=== PATIENT | male | born 1930 | race Caucasian/White ===

== ENCOUNTER 2016-08-18 14:01 | Inpatient (IN) | payer MEDICARE, OTHER ==
[~2016-08-18] VITALS: Ht 175.3 cm; Wt 80.5 kg
[2016-08-18 14:59] LABS: BASOPHILS 1.3 % (0.0-2.0); EOSINOPHILS 2.4 % (0-7); HEMATOCRIT 42.6 % (42.0-54.0); HEMOGLOBIN 13.7 g/dL (13.5-17.5); IMMATURE GRANULOCYTES 0.3 % (0-5); LYMPHOCYTES 29.3 % (15-50); MCH 28.3 pg (26.0-34.0); MCHC 32.2 g/dL (31.0-37.0); MEAN PLATELET VOLUME 10.5 fL (7.4-10.4); NEUTROPHILS 52.7 % (40-80); PLATELET COUNT 208 10x3/uL (130-400); RBC 4.84 10x6/uL (4.20-6.10); RDW 14.9 % (11.5-14.5); WBC 7.9 10x3/uL (4.8-10.8)
[2016-08-18 15:18] LABS: APPEARANCE CLEAR (CLEAR); BILIRUBIN NEGATIVE (NEGATIVE); COLOR YELLOW (YELLOW); GLUCOSE NEGATIVE (NEGATIVE); KETONE NEGATIVE (NEGATIVE); LEUKOCYTE ESTERASE NEGATIVE (NEGATIVE); NITRITE NEGATIVE (NEGATIVE); PROTEIN NEGATIVE (NEGATIVE); SPECIFIC GRAVITY 1.015 (1.005-1.020); UROBILINOGEN NORMAL (NORMAL)
[2016-08-18 15:22] LABS: INR 1.04 (0.85-1.17); PROTIME 13.4 SECONDS (11.6-15.0)
[2016-08-18 15:24] LABS: D-DIMER-QUANTITATIVE 1.5 ug/mLFEU (0.20-0.54)
[2016-08-18 15:28] LABS: ALBUMIN 3.3 g/dL (3.4-5.0); ALKALINE PHOSPHATASE 80 U/L (46-116); ALT (SGPT) 22 U/L (10-68); BILIRUBIN - TOTAL 0.66 mg/dL (0.2-1.3); CALC OSMOLALITY 287 mosm/kg (275-300); CALCIUM 8.3 mg/dL (8.5-10.1); CARBON DIOXIDE 29.9 mmol/L (21.0-32.0); CHLORIDE - SERUM 104 mmol/L (98-107); CREATINE KINASE 59 UL (21-232); CREATININE - SERUM 1.3 mg/dL (0.6-1.3); GLUCOSE 112 mg/dL (74-106); POTASSIUM - SERUM 4.2 mmol/L (3.5-5.1); PRO BNP 1179 pg/mL (0-450); PROTEIN - SERUM 6.3 g/dL (6.4-8.2); SODIUM 142 mmol/L (136-145); UREA NITROGEN 23 mg/dL (7-18); eGFR NON AFRICAN AMERICAN 55 mL/min (90-120)
[2016-08-18 15:33] LABS: TROPONIN-I < 0.017 ng/mL (0.000-0.060)
[2016-08-18] MEDS ORDERED: METOPROLOL TART50 MG PO (19:36)
[2016-08-18] MEDS ORDERED: LIPITOR40 MG PO (19:37)
[2016-08-18] MEDS ORDERED: BAYER CHEWABLE81 MG PO (19:38)
[2016-08-18] MEDS ORDERED: PACERONE100 MG PO (19:39)
[2016-08-18] MEDS ORDERED: OMEPRAZOLE20 M1 PO (19:41)
[2016-08-18] MEDS ORDERED: FLAXSEED OIL1000 MG PO (19:44)
[2016-08-18] MEDS ORDERED: MULTIPLE VITAMI1 TA1 PO (19:44)
[2016-08-18] MEDS ORDERED: ADVIL200 MG PO (19:44)
[2016-08-18] MEDS ORDERED: BREO ELLIPTA 11 EACH INH (19:47)
[2016-08-18 21:00] VITALS: BP 189/66
[2016-08-18 23:45] VITALS: BP 187/66; Ht 175.3 cm; Wt 80.5 kg
[2016-08-19 00:30] VITALS: BP 133/47
[2016-08-19 05:00] VITALS: BP 136/55
--- NOTE | 2016-08-19 07:00 | NUR ---
REPORT RECIEVED ASSUMED CARE. PATIENT IN BED WITH IV INTACT. NO COMPLAINTS. CALL LIGHT WITHIN REACH.
[2016-08-19 07:51] VITALS: BP 155/54
--- NOTE | 2016-08-19 10:17 | NUR ---
Rehab Note- Rehab Prescreen Order received. The patient is a new admit, awaiting MD assessment and further tests for possible achilles tendon rupture. Will follow at this time. Thank you for this referral! Purvi Salmon RN Clinical Liaison, Rehab Care/[place]
[2016-08-19 10:56] LABS: ALBUMIN 2.9 g/dL (3.4-5.0); ANION GAP 8.3 mmol/L (8-16); BILIRUBIN - TOTAL 0.6 mg/dL (0.2-1.3); CALCIUM 8.5 mg/dL (8.5-10.1); CREATININE - SERUM 1.4 mg/dL (0.6-1.3); POTASSIUM - SERUM 4.3 mmol/L (3.5-5.1); PROTEIN - SERUM 5.8 g/dL (6.4-8.2)
[2016-08-19 10:57] LABS: BASOPHILS 0.8 % (0.0-2.0); HEMATOCRIT 41.4 % (42.0-54.0); HEMOGLOBIN 13.4 g/dL (13.5-17.5); IMMATURE GRANULOCYTES 0.3 % (0-5); MCH 28.4 pg (26.0-34.0); MCHC 32.4 g/dL (31.0-37.0); MCV 87.7 fL (80.0-100.0); MEAN PLATELET VOLUME 10.5 fL (7.4-10.4); MONOCYTES 18.4 % (2-11); NEUTROPHILS 49.5 % (40-80); PLATELET COUNT 183 10x3/uL (130-400); RBC 4.72 10x6/uL (4.20-6.10); RDW 14.7 % (11.5-14.5); WBC 6.4 10x3/uL (4.8-10.8)
--- NOTE | 2016-08-19 11:00 | NUR ---
PATIENT IN BED WITH NO COMPLAINTS. SITTING UP IN BED WITH CALL LIGHT WITHIN REACH.
--- NOTE | 2016-08-19 12:24 | NUR ---
Rehab Prescreening Consult recieved and the patient has been visited. He meets criteria and desires to participate in the required therapy. Unsure at this time the treatment plan so rehab will follow. The patient and the CM have been made aware. Antonina Francisco RN Clinical Liaison, RN
[2016-08-19 12:29] VITALS: BP 150/56
--- NOTE | 2016-08-19 13:57 | NUR ---
Patient Name: SD LEGGETT Admission Status: ER Accout number: [id number] Admission Date: 08-18-2016 : 1929 Admission Diagnosis: Attending: ALLISON Current LOS: 1 Anticipated DC Date: 08-20-2016 Planned Disposition: Home Primary Insurance: MEDICARE A & B Discharge Planning Comments: CM MET WITH PATIENT AND FAMILY REGARDING D/C NEEDS AND PLANS. PATIENT STATED HE HAS A RAMP TO ENTER HIS HOME AND 1 STEP INSIDE. PATIENT STATED HIS SON IN LAW (YUNIOR) WILL DRIVE HIM HOME AT DISCHARGE. PATIENT IS INDEPENDENT WITH HIS CARE AND HAS A WALKER, WHEELCHAIR, AND CRUTCHES AT HOME. PATIENTS PCP IS DR. BEARD AND PHARMACY IS [facility]. PATIENT HAS NEVER HAD HOME HEALTH BUT IF DOCTOR THOUGHT HE NEEDED IT HE WOULD HAVE IT PER PATIENT. CM WILL CONTINUE TO FOLLOW PATIENT WITH D/C NEEDS AND PLANS. PCP DR. [facility] [id number] RAKAN (DAUGHTER) [phone] YUNIOR (SON IN LAW) [phone] Surgical Technology Instructor: Amrailis Garcia Is the patient Alert and Oriented? Yes 0 * How many steps to enter\exit or inside your home? RAMP 0 * PCP DR. BEARD 0 * Pharmacy [place] 0 * Preadmission Environment Home Alone 0 * ADLs Independent 0 * Equipment Crutch Walker Wheelchair 0 * List name and contact numbers for known caregivers / representatives who currently or will assist patient after discharge: RAKAN KEARNEY (DAUGHTER) [phone] YUNIOR (SON IN LAW) [phone] 0 * Community resources currently utilized None 0 * Additional services required to return to the preadmission environment? Yes 0 * Can the patient safely return to the preadmission environment? Yes 0 * Has this patient been hospitalized within the prior 30 days at any hospital? No 0 Grand Total: 0
--- NOTE | 2016-08-19 15:00 | NUR ---
PATIENT IN BED WITH IV INTACT. NO COMPLAINTS. CALL LIGHT WITHIN REACH.
--- NOTE | 2016-08-19 16:01 | NUR ---
Rehab Note- MRI completed and patient has a noted "near complete tear of the Achilles tendon with retraction of a large portion of the tendon". Has an ortho consult. Will follow the patient at this time and await plan from Ortho. Thank you! Purvi Salmon RN Clinical Liaison, Rehab Care/[place]
[2016-08-19 16:37] VITALS: BP 152/51
--- NOTE | 2016-08-19 18:45 | NUR ---
PATIENT SITTING UP WATCHING TV. IV INTACT. TELEMETRY PLACED ON PATIENT. BSCDS ON PATIENT. NO COMPLAINTS. FAMILY AT BEDSIDE. CALL LIGHT WITHIN REACH.
[2016-08-19 19:00] VITALS: BP 159/45
[2016-08-20] VITALS (15 sets, daily range): BP systolic 102–181; BP diastolic 45–102
--- NOTE | 2016-08-20 03:58 | NUR ---
ASSESSED AT THE BEGINNING OF THE SHIFT. HE DAD VISITORS AT THE BEDSIDE AND WAS IN A GOOD MOOD. HE HAS TELEMETRY IN PLACE WITH NORMAL SINUS RHYTHM AND IS USING A URINAL AT [facility] BEDSIDE. DR HANKINS IS TO SEE HIM IN THE AM ABOUT HIS ACHILLES TENDON. THE BED IS LOW, RAILS UP X'S 2 WITH THE CALL LIGHT AT HAND. HE IS NOT COMPLAINING OF PAIN UNLESS HE TRYS TO USE IT TO WALK. HE IS ABLE TO VERBALIZE HIS NEEDS.
[2016-08-20 06:08] LABS: BASOPHILS 0.6 % (0.0-2.0); EOSINOPHILS 2.1 % (0-7); HEMATOCRIT 41.3 % (42.0-54.0); HEMOGLOBIN 13.3 g/dL (13.5-17.5); IMMATURE GRANULOCYTES 0.1 % (0-5); LYMPHOCYTES 26.9 % (15-50); MCH 27.9 pg (26.0-34.0); MCHC 32.2 g/dL (31.0-37.0); MCV 86.8 fL (80.0-100.0); MEAN PLATELET VOLUME 10.9 fL (7.4-10.4); MONOCYTES 17.6 % (2-11); NEUTROPHILS 52.7 % (40-80); PLATELET COUNT 171 10x3/uL (130-400); RBC 4.76 10x6/uL (4.20-6.10); RDW 14.7 % (11.5-14.5); WBC 7.9 10x3/uL (4.8-10.8)
[2016-08-20 06:38] LABS: ANION GAP 9.6 mmol/L (8-16); BILIRUBIN - TOTAL 0.82 mg/dL (0.2-1.3); CALCIUM 8.6 mg/dL (8.5-10.1); CARBON DIOXIDE 31.3 mmol/L (21.0-32.0); CREATININE - SERUM 1.2 mg/dL (0.6-1.3); POTASSIUM - SERUM 3.9 mmol/L (3.5-5.1); PROTEIN - SERUM 6.2 g/dL (6.4-8.2)
--- NOTE | 2016-08-20 07:00 | NUR ---
PT REC'D FROM [facility]. RESTING IN BED AAOX4. NO CURRENT COMPLAINTS OF PAIN. PT STATES, "UNLESS I MOVE A CERTAIN WAY IT DOESN'T HURT." L ANKLE SWOLLEN. +1 PITTING EDEMA. SCD'S PUT ON. EMPTIED URINAL OF 300CC'S OF CLEAR YELLOW URINE. BED LOW, CALL LIGHT IN REACH, DENIES NEEDS.
--- NOTE | 2016-08-20 10:47 | NUR ---
SPOKE WITH PT ABOUT HAVING SURGERY TODAY. PT STATED HE IS FINE WITH THAT. RECEIVING BATH NOW FROM [facility]. PO AMNIODARONE AND METOPROLOL ADMINISTERED.
--- NOTE | 2016-08-20 15:17 | NUR ---
FAMILY AT BEDSIDE.CALL LIGHT IN REACH
--- NOTE | 2016-08-20 17:24 | NUR ---
REPORT REC'D FROM CHIDI OTOOLE, IN RECOVERY. ROOM READY AND AWAITING PT ARRIVAL.
--- NOTE | 2016-08-20 17:53 | NUR ---
PT REC'D TO ROOM FROM RECOVERY VIA BED, ACCOMPANIED BY STAFF. AAOX4. +2 BILAT PEDAL PULSES. VSS. DRESSING TO LLE CLEAN, DRY, AND INTACT. ICE TO L ANKLE. PT IS ABLE TO WIGGLE TOES A MILD AMOUNT, AND HAS SOME FEELING TO TOES. NO COMPLAINTS OF PAIN. TAUGHT PT HOW TO USE INCENTIVE SPIROMETER. ABLE TO PULL 1500. INSTRUCTED PT TO USE INCENTIVE SPIROMETER 5 TIMES EVERY HOUR WHILE AWAKE. PT ABLE TO RETURN DEMONSTRATION AND HAS NO QUESTIONS AT THIS TIME. FAMILY AT BEDSIDE, DINNER TRAY IN ROOM, BED LOW, CALL LIGHT IN REACH, DENIES NEEDS.
[2016-08-21] VITALS: BP 122/50
[2016-08-21 04:00] VITALS: BP 123/53
[2016-08-21 05:11] LABS: BASOPHILS 0.1 % (0.0-2.0); EOSINOPHILS 0 % (0-7); HEMATOCRIT 39.8 % (42.0-54.0); IMMATURE GRANULOCYTES 0.2 % (0-5); LYMPHOCYTES 7.9 % (15-50); MCH 28.1 pg (26.0-34.0); MCHC 32.7 g/dL (31.0-37.0); MCV 86.1 fL (80.0-100.0); MEAN PLATELET VOLUME 10.3 fL (7.4-10.4); MONOCYTES 2.1 % (2-11); NEUTROPHILS 89.7 % (40-80); PLATELET COUNT 171 10x3/uL (130-400); RBC 4.62 10x6/uL (4.20-6.10); RDW 14.5 % (11.5-14.5); WBC 10.2 10x3/uL (4.8-10.8)
[2016-08-21 05:30] LABS: ALBUMIN 2.8 g/dL (3.4-5.0); ANION GAP 12.1 mmol/L (8-16); BILIRUBIN - TOTAL 0.8 mg/dL (0.2-1.3); CALCIUM 8.4 mg/dL (8.5-10.1); CARBON DIOXIDE 28.8 mmol/L (21.0-32.0); CREATININE - SERUM 1.5 mg/dL (0.6-1.3); PROTEIN - SERUM 6.4 g/dL (6.4-8.2)
[2016-08-21 05:32] LABS: POTASSIUM - SERUM 4.9 mmol/L (3.5-5.1)
--- NOTE | 2016-08-21 07:00 | NUR ---
PT REC'D FROM [facility]. RESTING IN BED WITH [facility], IN ROOM. AAOX4. PT STILL NO SENSATION TO LLE. IS ABLE TO PICK LEG UP AND MOVE IT INDEPENDENTLY. +2 PEDAL PULSES BILAT. DRESSING AND SPLINT TO LLE CDI. BED LOW, CALL LIGHT IN REACH, DENIES NEEDS.
--- NOTE | 2016-08-21 07:46 | NUR ---
PATIENT IN [place] POSITION ALERT AND RESTING QUIETLY. RESPIRATIONS EVEN AND UNLABORED. SIDE RAILS UP X2. BED IN LOW POSITION. CALL LIGHT IN REACH.
[2016-08-21 09:00] VITALS: BP 135/54
--- NOTE | 2016-08-21 09:30 | NUR ---
MORNING MEDS PASSED AT THIS TIME. PT SITTING UP IN CHAIR AT BEDSIDE. SPOKE WITH CHAYITO FROM PHYSICAL THERAPY STATED PT TRANSFERED FROM BED TO CHAIR WITHOUT DIFFICULTY BY USING WALKER.
[2016-08-21 12:45] VITALS: BP 133/52
--- NOTE | 2016-08-21 16:00 | NUR ---
TORDOL AND TYLENOL ADMINISTERED AT THIS TIME. EXPLAINED TO PT PURPOSE OF THE TWO MEDICATIONS AND THAT THEY ARE NOT FOR PAIN SPECIFICALLY, BUT CAN HELP. PT STILL REPORTS NO PAIN. STILL UP IN CHAIR AT BEDSIDE AND DENIES NEEDS. CPOC.
[2016-08-21 16:28] VITALS: BP 143/48
--- NOTE | 2016-08-21 18:17 | NUR ---
PT BACK IN BED WITH DINNER TRAY IN ROOM. ON PHONE WITH FAMILY MEMBER.
[2016-08-21 19:00] VITALS: BP 140/53
[2016-08-22] VITALS: BP 149/65
--- NOTE | 2016-08-22 01:30 | NUR ---
PT. REPORTS HE IS UNABLE TO SLEEP AND WANTED A XANAX OR HIS SLEEPING PILL LIKE THE NURSE GAVE HIM LAST NIGHT. I CHECKED THE MAR AND THERE WAS NO RECORD OF EITHER. PT. GOT UPSET AND SAID WHEN HE CAME IN HE GAVE THE ADMIT NURSE ALL OF HIM MEDICATIONS SO IT SHOULD BE IN HIS ORDERS. I REVIEWED ALL OF HIS MEDS LISTED AND HE GOT VERY FRUSTRATED AND DIDN'T UNDERSTAND WHY I COULDN'T JUST GO GET HIM A SLEEPING PILL OR A XANAX. ATTEMPTED TO EXPLAIN TO THE PATIENT HOW THE MEDICATION SYSTEM WAS SET UP AND ALL HE COULD SAY WAS THAT IF HE WAS OVER AT [facility] HE WOULD GET A SLEEPING PILL OR A XANAX. WENT AND TALKED WITH CHIDI PRADHAN, CHARGE NURSE AND SHE SAID TO GIVE THE PT. HIS NORCO THAT IS ORDERED. WHEN ENTERING ROOM PT. WAS ON THE PHONE WITH HIS DAUGHTER SHE HAD TAKEN ALL OF HIS HOME MEDS BACK WITH HER AND SHE WAS TRYING TO USE A DIVERSION TECHNIQUE TO GET HIM TO GO TO SLEEP AND I TOLD HER I HAD A NORCO FOR HIM AND SHE TOLD HER DAD THAT IT WOULD PUT HIM TO SLEEP. PT. TOOK THE NORCO WITHOUT COMPLAINT.
--- NOTE | 2016-08-22 02:15 | NUR ---
SPOKE WITH CHARGE NURSE, CHIDI PRADHAN ABOUT PT'S 0300 DOSE OF ES TYLENOL AND PT. HAS ALREADY EXCEEDED THE RECOMMENDED AMOUNT OF TYLENOL FOR A 24 HOUR PERIOD. SHE CHECKED HIS LIVER FUNCTION TESTS AND SHE SAID THEY WERE FINE AND TO GO AHEAD AND GIVE THE TYLENOL SCHEDULED.
[2016-08-22 04:00] VITALS: BP 163/74
--- NOTE | 2016-08-22 05:31 | NUR ---
PT. IN BED WITH HOB UP FOR COMFORT AND IS STILL AWAKE. SCD ONLY ON RLE. LLE ELEVATED AND PT. STILL WITHOUT ANY FEELING TO EXTREMITY. CALL LIGHT WITHIN REACH FOR ANY NEEDS.
[2016-08-22 06:12] LABS: ALBUMIN 2.7 g/dL (3.4-5.0); ANION GAP 14.9 mmol/L (8-16); BILIRUBIN - TOTAL 0.5 mg/dL (0.2-1.3); CALCIUM 8.3 mg/dL (8.5-10.1); CARBON DIOXIDE 24.9 mmol/L (21.0-32.0); CREATININE - SERUM 1.6 mg/dL (0.6-1.3); POTASSIUM - SERUM 4.8 mmol/L (3.5-5.1); PROTEIN - SERUM 6.1 g/dL (6.4-8.2)
[2016-08-22 06:29] LABS: HEMATOCRIT 38.7 % (42.0-54.0); HEMOGLOBIN 12.5 g/dL (13.5-17.5); MCH 27.8 pg (26.0-34.0); MCHC 32.3 g/dL (31.0-37.0); MCV 86.2 fL (80.0-100.0); MEAN PLATELET VOLUME 11.2 fL (7.4-10.4); PLATELET COUNT 192 10x3/uL (130-400); RBC 4.49 10x6/uL (4.20-6.10); RDW 14.5 % (11.5-14.5); WBC 20.5 10x3/uL (4.8-10.8)
[2016-08-22 07:11] LABS: LYMPHOCYTES 10 % (15-50); MONOCYTES 10 % (2-11); NEUTROPHILS 79 % (40-80); PLATELET ESTIMATE NORMAL
[2016-08-22] MEDS ORDERED: HYDROCODON-ACE1 EAC7 PO (08:10)
[2016-08-22 08:59] VITALS: BP 161/91
--- NOTE | 2016-08-22 09:00 | NUR ---
REPORT RECIEVED ASSUMED CARE. NO COMPLAINTS AT THIS TIME. IV INTACT. IN BED WITH EYES OPEN. CALL LIGHT WITHIN REACH.
--- NOTE | 2016-08-22 10:40 | NUR ---
CM REASSESSMENT NOTE: PATIENT IS DISCHARGING HOME TODAY WITH DAUGHTER. PATIENT CHOSE [facility] AND ANA WAS SIGNED/REFERRAL SENT. HEALTHCARE MEDICAL DELIVERING WALKER TO ROOM.
[2016-08-22] MEDS ORDERED: VIBRAMYCIN 100100 MG PO (11:55)
--- NOTE | 2016-08-22 15:15 | NUR ---
PATIENT RECIEVED DISCHARGE INSTRUCTIONS. VERBALIZED UNDERSTANDING. NO QUESTIONS AT THIS TIME. IV REMOVED WITH CATH TIP INTACT. FAMILY AT SIDE. PRESCRIPTION GIVEN TO PATIENT. CALL LIGHT WITHIN REACH.
--- NOTE | 2016-08-22 15:30 | NUR ---
ESCORTED PATIENT OUT OF BUILDING VIA WC WITH PESONAL BELONGINGS TO PRIVATE VEHICLE FOR DC.
--- NOTE | 2016-08-23 07:07 | DS ---
PATIENT:SD LEGGETT :28 MEDICAL RECORD: [id number] DISCHARGE SUMMARY ADMISSION DATE: 08/19/16 DISCHARGE DATE: 08/22/16 He was admitted to the hospital on 08/19/2016. He was discharged on 08/22/2016. ADMITTING DIAGNOSIS: Left Achilles rupture. DISCHARGE DIAGNOSIS: Left Achilles rupture. PROCEDURE PERFORMED DURING THE HOSPITALIZATION: A left Achilles repair. ADMITTING PHYSICIAN: Sherice Heath MD CONSULTING PHYSICIAN: Jake Oliveros MD HISTORY OF PRESENT ILLNESS: This is a pleasant 86-year-old male, who felt a pop in the back of his leg. This was severe. He has had no power to push up with his foot. MRI showed a complete tear of his Achilles. In discussing this with him, he had no significant medical problems. He had no diabetes. It was felt that it could be repaired with good results. He was taken to the operating room and underwent a very good repair of his Achilles tendon. It was felt that he can be discharged home although he will need to be nonweightbearing and keep him in a plantar flexed position for about 2 weeks after which time upon discharge, bring him up to a neutral position. We will have him nonweightbearing. We will have him on pain meds. We will see him back in the office in about 2 weeks and he will call if he is having any problems. He will also have to follow up with Dr. Heath as she indicates. TRANSINT:[id number] Voice Confirmation ID: [id number] DOCUMENT ID: [id number] DEVAN OLIVEROS MD at 0707 CC: [id number] DICTATION DATE: 08/22/16 0806 TOUCHER UP: 08/22/16 0934 DIS IN 08/22/16 [place] [id number] [place] [id number]
--- NOTE | 2016-08-23 07:07 | OP ---
PATIENT NAME: SD LEGGETT MEDICAL RECORD: [id number] :28 LOCATION:D.MS [id number] ADMISSION DATE:08/19/16 SURGEON: DEVAN ROGERS MD DATE OF OPERATION: 08/20/2016 PREOPERATIVE DIAGNOSIS: Left Achilles rupture. POSTOPERATIVE DIAGNOSIS: Left Achilles rupture. PROCEDURE PERFORMED: Left Achilles repair. SURGEON: Jake Rogers MD ANESTHESIA: General with a popliteal block for postop pain. CONDITION: The patient tolerated procedure well, was transferred to the recovery room in stable condition at termination of the procedure. INDICATIONS: This is an 86-year-old gentleman, who had had a complete tear of his Achilles. He has no function in it. He has been very active otherwise. We discussed risks, benefits, and alternatives of surgery. He is not diabetic. His skin is not compromised. We therefore elected to repair this. We discussed with him the risks, benefits and alternatives. He understood and wished to proceed. OPERATIVE REPORT: The patient was taken to the operating room and placed in supine position. General anesthesia was obtained. He did have a popliteal block placed in the preop holding area. In the operating room, he was flipped into a prone position. His left leg was confirmed to be the correct leg. He was prepped and draped in the normal fashion. He did receive Ancef per protocol. Procedure was begun by making a small lateral incision. This was taken down. The nerve was protected. The 2 ends of the Achilles were identified. They were completely ruptured with about 2 cm, still on his heel. This area was debrided and irrigated. I then used two #2 [place]mont wires stitching up and down in a Krackow type sutures to bring the 2 ends together. I then did a circumferential suture with an 0 Fairmont wire as well. I then irrigated. I then closed with #1 Vicryl, then a 2-0 Vicryl, then ____ 3-0 Prolene, and half inch Steri-Strips. He was placed in a plantar flexed position in a splint, awakened and transferred to the recovery room in stable condition. We will go slow with this, start increasing his motion over the next couple of weeks and proceed from this juncture. TRANSINT:[id number] Voice Confirmation ID: [id number] DOCUMENT ID: [id number] DEVAN ROGERS MD at 0707 CC: [id number] DICTATION DATE: 08/20/16 171 SHAREPOINT SPECIALIST: 08/20/16 1815 DIS IN 08/22/16 [facility] [address] [place] [address]
== END 2016-08-22 15:36 | disposition home health service (06) | DRG 502 ==
LOC: D.ER 14:01 → D.MS 17:56 → OBSVTIME 17:56 → D.MS 08-19 14:21
PROVIDERS: Nurse Practitioner Family; Orthopaedic Surgery Sports Medicine; ADMIT Family Medicine
PROC: 0LQP0ZZ Repair Left Lower Leg Tendon, Open Approach (ICD-10-PCS; principal; 2016-08-20 16:00)
DX: S86.012A Strain of left Achilles tendon, initial encounter (principal); X58.XXXA Exposure to other specified factors, initial encounter; I10 Essential (primary) hypertension; I48.91 Unspecified atrial fibrillation; I25.10 Atherosclerotic heart disease of native coronary artery without angina pectoris

== ENCOUNTER 2017-06-05 04:52 | Inpatient (IN) | payer MEDICARE, OTHER ==
[~2017-06-05] VITALS: Ht 171.4 cm; Wt 94.9 kg
[~2017-06-05 04:52] MED LIST: ADVIL200 MG PO; BAYER CHEWABLE81 MG PO; BREO ELLIPTA 11 EACH INH; FLAXSEED OIL1000 MG PO; HYDROCODON-ACE1 EAC7 PO; LIPITOR40 MG PO; METOPROLOL TART50 MG PO; MULTIPLE VITAMI1 TA1 PO; OMEPRAZOLE20 M1 PO; PACERONE100 MG PO; VIBRAMYCIN 100100 MG PO
[2017-06-05 05:29] LABS: BASOPHILS 0.4 % (0-2); EOSINOPHILS 1.3 % (0-7); HEMATOCRIT 45.4 % (42.0-54.0); IMMATURE GRANULOCYTES 0.3 % (0-5); LYMPHOCYTES 32.1 % (15-50); MCV 84.7 fL (80.0-100.0); MEAN PLATELET VOLUME 9.9 fL (7.4-10.4); MONOCYTES 10.1 % (2-11); NEUTROPHILS 55.8 % (40-80); PLATELET COUNT 172 10x3/uL (130-400); RBC 5.36 10x6/uL (4.20-6.10); RDW 17.4 % (11.5-14.5); WBC 11.2 10x3/uL (4.8-10.8)
[2017-06-05 05:43] LABS: ALBUMIN 3.2 g/dL (3.4-5.0); ALKALINE PHOSPHATASE 87 U/L (46-116); ALT (SGPT) 20 U/L (10-68); BILIRUBIN - TOTAL 0.56 mg/dL (0.2-1.3); CALC OSMOLALITY 283 mosm/kg (275-300); CALCIUM 8.8 mg/dL (8.5-10.1); CARBON DIOXIDE 31.1 mmol/L (21.0-32.0); CHLORIDE - SERUM 103 mmol/L (98-107); CREATININE - SERUM 1.5 mg/dL (0.6-1.3); GLUCOSE 106 mg/dL (74-106); POTASSIUM - SERUM 4.2 mmol/L (3.5-5.1); PROTEIN - SERUM 6.7 g/dL (6.4-8.2); SODIUM 141 mmol/L (136-145); UREA NITROGEN 20 mg/dL (7-18); eGFR NON AFRICAN AMERICAN 47 mL/min (90-120)
[2017-06-05 05:55] LABS: CKMB 0.8 U/L (0.0-3.6); CREATINE KINASE 36 UL (21-232); MAGNESIUM - SERUM 1.8 mg/dL (1.8-2.4); THYROID STIMULATING HORMONE 4.79 uIU/mL (0.36-3.74)
[2017-06-05 05:56] LABS: TROPONIN-I 0.016 ng/mL (0.000-0.060)
[2017-06-05 07:13] VITALS: BP 96/58; Ht 171.4 cm; Wt 94.9 kg
[2017-06-05 08:09] VITALS: BP 103/65
[2017-06-05 11:46] VITALS: BP 116/48
[2017-06-05 12:50] LABS: CKMB 1.6 U/L (0.0-3.6); CREATINE KINASE 46 UL (21-232)
[2017-06-05 16:51] VITALS: BP 101/51
[2017-06-05 19:40] LABS: CKMB 2.2 U/L (0.0-3.6); CREATINE KINASE 52 UL (21-232)
[2017-06-05 19:50] LABS: TROPONIN-I 0.101 ng/mL (0.000-0.060)
[2017-06-05 20:30] VITALS: BP 120/48
[2017-06-06 00:31] VITALS: BP 104/53
[2017-06-06 04:45] LABS: BASOPHILS 0.4 % (0-2); EOSINOPHILS 0.8 % (0-7); IMMATURE GRANULOCYTES 0.4 % (0-5); LYMPHOCYTES 33.8 % (15-50); MCH 27.8 pg (26.0-34.0); MCHC 32.6 g/dL (31.0-37.0); MCV 85.3 fL (80.0-100.0); MEAN PLATELET VOLUME 10.1 fL (7.4-10.4); MONOCYTES 9.8 % (2-11); NEUTROPHILS 54.8 % (40-80); PLATELET COUNT 167 10x3/uL (130-400); RBC 5.04 10x6/uL (4.20-6.10); RDW 17.4 % (11.5-14.5); WBC 10.7 10x3/uL (4.8-10.8)
[2017-06-06 05:05] LABS: ANION GAP 11.1 mmol/L (8-16); CALCIUM 8.6 mg/dL (8.5-10.1); CARBON DIOXIDE 30.1 mmol/L (21.0-32.0); CREATININE - SERUM 1.4 mg/dL (0.6-1.3); POTASSIUM - SERUM 4.2 mmol/L (3.5-5.1)
[2017-06-06 05:10] VITALS: BP 121/56
[2017-06-06 08:11] VITALS: BP 108/61
[2017-06-06 11:57] VITALS: BP 127/81
[2017-06-06] MEDS ORDERED: CARDIZEM CD120 MG PO (14:14)
--- NOTE | 2017-06-12 09:02 | EC ---
PATIENT:SD LEGGETT DATE OF SERVICE: 06/06/17 SEX: M MEDICAL RECORD: [id number] DATE OF : 28 LOCATION:D.M2 D.211 AGE OF PATIENT: 87 ADMISSION DATE: 06/06/17 REFERRING PHYSICIAN: INTERPRETING PHYSICIAN: ABDIAS GARCIA MD ECHOCARDIOGRAM REPORT ECHO CHARGES 4 ECHO COMPLETE CLINICAL DIAGNOSIS: A-FIB ECHOCARDIOGRAPHIC MEASUREMENTS (adult normal given) AC root (d.<3.7cm) 3.2 cm LV Septum d (<1.2 cm> 1.7 cm Valve Excursion 0.6 cm LV Septum (systole) 2.6 cm Left Atria (s.<4.0cm> 4.5 cm LVPW d(<1.2cm) 1.9 cm RV (d.<2.3cm) 2.9 cm LVPW (sytole) 2.5 cm LV diastole(<5.6CM) 5.0 cm MV E-F(>70mm/sec) cm LV systole 3.4 cm LVOT Diameter 1.9 cm MV exc.(>10mm) cm Est.ejection fraction (50-75%) % Pericardial Effusion N DOPPLER: LVIT cm/sec A 88.0 cm/sec E 135 cm/sec LA cm/sec RVSP 49.0 mmHg LVOT 82.0 cm/sec AOP1/2T m/s Asc. Ao 410.0cm/sec RVOT 60.0 cm/sec RA cm/sec PA 115 cm/sec AV Gradient Peak 67.2 mmHg AV Mean 42.3 mmHg AV Area 0.6 cm MV Gradient Peak 11.0 mmHg MV Mean 3.4 mmHg MV Area cm COMMENTS: Financial Aid: Zarina FARAH Customer Support Specialist: 3 Dr. Ayala TAPE# PACS DATE OF SERVICE: 06/06/2017 ECHOCARDIOGRAM FINDINGS: 1. Left ventricular chamber size is within normal limits. Left ventricular systolic function is mildly depressed, ejection fraction 40%. 2. Left atrium is enlarged at 4.5 cm. Right atrium and right ventricular chamber sizes are as well mildly dilated. 3. 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 There is a gradient of 67 mm across the valve. The remaining valvular structures have normal structure and motion. 4. Doppler interrogation elsewise reveals trace mitral regurgitation, moderate tricuspid regurgitation, no other valvular insufficiency or stenosis and pulmonary systolic pressure is elevated estimated at 50 mmHg. 5. No evidence of pericardial effusion or left ventricular thrombus. TRANSINT:[id number] Voice Confirmation ID: [id number] DOCUMENT ID: [id number] ABDIAS GARCIA MD at 0902 CC: [id number] DICTATION DATE: 06/06/17 1100 METAL PATTERNMAKER APPRENTICE: 06/06/17 1135 DIS IN 06/06/17 [facility] [address] [place] [address]
--- NOTE | 2017-06-14 13:00 | CN ---
PATIENT NAME:SD LEGGETT MEDICAL RECORD: [id number] : 28 LOCATION:D.[facility] D.2114 ADMIT DATE: 06/06/17 ACCOUNT: [id number] CONSULTING PHYSICIAN: MARYAM CONROY MD REFERRING PHYSICIAN: JOSEFINA GRAY MD DATE OF CONSULTATION: 06/05/2017 HISTORY OF PRESENT ILLNESS: A pleasant 87-year-old gentleman with a known history of a rare paroxysmal atrial fibrillation/flutter, well controlled on beta-stephanie therapy, had an acute onset this morning of dyspnea and chest pain. In the ER, was found to be in atrial flutter 2:1 and slowed down briefly with IV Lopressor, right now at approximately 120. He has had no episodes in over years, ____ taken off his class 3 agent. We are seeing him concerning his cardiovascular status. Currently exams are negative. He is mildly intravascularly depleted with a BUN of 20 and creatinine 1.5. PAST MEDICAL HISTORY: 1. History of hypertension. 2. Hyperlipidemia. 3. Status post Achilles rupture. 4. Osteoarthritis. 5. Gastroesophageal reflux disease. ALLERGIES: LEVAQUIN AND PENICILLIN. MEDICATIONS: Atorvastatin 40 mg day, metoprolol 50 mg b.i.d., aspirin 81 mg every day, omeprazole 20 mg every day. SOCIAL HISTORY: Functions independently. He is a nonsmoker and nondrinker. Usually takes care of all his ADLs. REVIEW OF SYSTEMS: The patient reports easy bruising but reports no swollen glands. The patient reports no fever, no night sweats, no significant weight gain, no significant weight loss. No significant exercise tolerance. The patient reports no dry eyes, no irritation, no vision change. Patient reports no difficulty hearing and no ear pain. Patient reports no frequent nose bleeds or nose and sinus problems. Patient reports on arm pain on exertion. No shortness of breath while lying down. No history of heart murmur. Patient reports no cough, no wheezing or coughing up blood. Patient reports no abdominal pain, no vomiting. Normal appetite. No diarrhea and not vomiting blood. No nausea and no constipation. Patient reports no incontinence. No difficulty urinating. No hematuria. No increased frequency. Patient reports no muscle aches. No weakness, no arthralgias, no back pain. No swelling of the extremities. Patient reports no abnormal mole, no jaundice, no rashes. Reports no loss of consciousness. No weakness and no numbness. No seizures, dizziness, or headaches. The patient reports no depression, no sleep disturbance, feeling safe in a relationship and no alcohol abuse. Patient reports on fatigue. Reports no runny nose or sinus pressure. No itching, no hives, and no frequent sneezing PHYSICAL EXAMINATION: GENERAL: Well-developed, well-nourished gentleman in no acute distress. VITAL SIGNS: 103/65, pulse 120 and regular. HEAD, EYES, EARS, NOSE, AND THROAT: Normocephalic, atraumatic. NECK: No JVD or bruit. CONSULT REPORT [id number] SD LEGGETT HEART: Regular. LUNGS: Haynes clear. ABDOMEN: Soft, nontender. EXTREMITIES: Pulses 2+. There is no edema. DIAGNOSTIC DATA: ECG shows atrial flutter 2:1. No acute ST-T changes, left axis. IMPRESSION: Will be given Cardizem drip to help with the rate control. Hopefully he can return to sinus rhythm, if not just will strive for rate control and if unable to control, may have to start NOAC at some point. TRANSINT:[id number] Voice Confirmation ID: [id number] DOCUMENT ID: [id number] MARYAM CONROY MD at 1300 CC: [id number] DICTATION DATE: 06/05/17823 DBA DEVELOPER: 06/05/17 1000 DIS IN 06/06/17 [facility] [address] [place] [address]
== END 2017-06-06 15:37 | disposition home or self-care (01) | DRG 310 ==
LOC: D.ER 04:52 → D.M2 05:58 → OBSVTIME 05:58 → D.M2 05:58
PROVIDERS: Emergency Medicine; ADMIT Family Medicine Adult Medicine
DX: I48.0 Paroxysmal atrial fibrillation (principal); I48.92 Unspecified atrial flutter; I07.1 Rheumatic tricuspid insufficiency; I10 Essential (primary) hypertension; E78.5 Hyperlipidemia, unspecified; M19.90 Unspecified osteoarthritis, unspecified site; K21.9 Gastro-esophageal reflux disease without esophagitis

== ENCOUNTER 2017-07-19 16:51 | Emergency (ER) | payer MEDICARE, OTHER ==
[2017-06-05 07:13] VITALS: BMI 31.7
[~2017-07-19 16:51] MED LIST changes: +CARDIZEM CD120 MG PO
[2017-07-19 17:11] LABS: BASOPHILS 0.3 % (0-2); EOSINOPHILS 0.9 % (0-7); HEMOGLOBIN 11.8 g/dL (13.5-17.5); IMMATURE GRANULOCYTES 0.7 % (0-5); LYMPHOCYTES 33.7 % (15-50); MCH 29.6 pg (26.0-34.0); MCHC 32.8 g/dL (31.0-37.0); MCV 90.2 fL (80.0-100.0); MEAN PLATELET VOLUME 10.6 fL (7.4-10.4); MONOCYTES 14.7 % (2-11); NEUTROPHILS 49.7 % (40-80); RBC 3.99 10x6/uL (4.20-6.10); RDW 18.3 % (11.5-14.5); WBC 19.7 10x3/uL (4.8-10.8)
[2017-07-19 17:16] LABS: PLATELET COUNT 296 10x3/uL (130-400)
== END 2017-07-19 19:02 ==
LOC: D.ER 16:51 → EDSTATUS 16:51 → D.ER 19:02
PROVIDERS: Emergency Medicine
DX: I46.9 Cardiac arrest, cause unspecified (principal); I10 Essential (primary) hypertension